=== PATIENT | male | born 1970 | race Caucasian/White ===

== ENCOUNTER → 2018-04-07 07:56 | Outpatient (CLI) | payer BC, SELFPAY ==
[2018-04-07 08:07] VITALS: BP 117/77; PULSE 74; RESP 16; O2SAT 97; BMI 29.8
== END ==
PROVIDERS: Family Provider Internal Medicine; PCP Internal Medicine; Visit Provider Internal Medicine
DX: R79.82 Elevated C-reactive protein (CRP) (principal); E78.00 Pure hypercholesterolemia, unspecified
CPT/HCPCS: 75571; 76380